=== PATIENT | male | born 1970 | race American Indian/Alaskan Native ===

== ENCOUNTER 2020-08-01 19:09 | Emergency (ER) | payer SELFPAY ==
[2020-08-01 19:38] VITALS: BP 178/106
== END 2020-08-02 06:26 | disposition left against medical advice (07) ==
LOC: ED 19:09
DX: M79.604 Pain in right leg (principal); Z53.21 Procedure and treatment not carried out due to patient leaving prior to being seen by health care provider

== ENCOUNTER 2021-03-26 08:46 | Emergency (ER) | payer BC, OTHER ==
--- NOTE | 2021-03-26 09:28 | Cat Scan Report ---
CT head/brain wo con INDICATION: Stroke symptoms. TECHNIQUE: Routine CT head. All CT scans at this location are performed using CT dose reduction for A JUN by means of automated exposure control. COMPARISON: None. FINDINGS: Intracranial: Bullock-white matter differentiation is maintained. No intracranial hemorrhage. No extra a xial collection. No hydrocephalus. No herniation. Remote right lacunar basal ganglia infarction. Smal l region of hypoattenuation in the left thalamus, also likely favored to represent remote lacunar inf arction. Mild scattered white matter hypoattenuation most consistent with sequela of chronic microvas cular disease. Sinuses: Paranasal sinuses and mastoid air cells are essentially clear. Orbits: Globes are intact. Calvarium: No acute fracture. IMPRESSION: 1. No evidence of acute territorial infarction. No hemorrhage. Signer Name: Rashid Chavez MD Signed: 03/26/2021 9:23 AM Workstation Name: [id number]
[2021-03-26 10:31] LABS: Basophils % (Auto) 0.6 % (0.0-1.8); Eosinophils # (Auto) 0.1 K/mm3 (0.0-0.4); Eosinophils % (Auto) 1.7 % (0.0-4.3); Hematocrit 42.8 % (35.5-45.6); Hemoglobin 13.3 gm/dl (11.8-15.2); Lymphocytes # (Auto) 1.6 K/mm3 (1.2-5.4); Lymphocytes % (Auto) 26.2 % (13.4-35.0); Mean Corpuscular HGB Conc 31 % (32-34); Mean Corpuscular Volume 74 fl (84-94); Monocytes # (Auto) 0.8 K/mm3 (0.0-0.8); Monocytes % (Auto) 14.2 % (0.0-7.3); Platelet Count 262 K/mm3 (140-440); Red Blood Count 5.77 M/mm3 (3.65-5.03)
[2021-03-26 10:42] LABS: INR 0.98 (0.87-1.13)
[2021-03-26 10:43] LABS: Partial Thromboplastin Time 32.8 Sec. (24.2-36.6); Thrombin Time 18.1 Sec. (15.1-19.6)
[2021-03-26 10:48] LABS: Creatine Kinase MB 1.3 ng/mL (0.0-4.0)
[2021-03-26 11:49] VITALS: BP 209/121
[2021-03-26 12:23] LABS: BUN/Creatinine Ratio 12; Blood Urea Nitrogen 11 mg/dL (9-20); Calcium 9.5 mg/dL (8.4-10.2); Hemolysis Index 4
== END 2021-03-27 01:04 | disposition left against medical advice (07) ==
LOC: ED 08:46
DX: R20.0 Anesthesia of skin (principal); Z53.21 Procedure and treatment not carried out due to patient leaving prior to being seen by health care provider
CPT/HCPCS: 36415; 70450; 80048; 82550; 82553; 82962; 84484; 85025; 85610; 85670; 85730

== ENCOUNTER 2021-03-27 08:16 | Observation (INO) | payer BC, OTHER ==
--- NOTE | 2021-03-27 09:41 | Emergency Department Report ---
ED Neuro Deficit HPI - General Chief Complaint: Neuro Symptoms/Deficit Stated Complaint: HEADACHE Time Seen by Provider: 03/27/21 09:20 Source: patient, old records reviewed Mode of arrival: Ambulatory Limitations: No Limitations - History of Present Illness Initial Comments: 50-year-old male with a past medical history of hypertension presents to the [facility] with stroke symptoms x1 week. Patient has had persistent slurred speech and numbness and tingling to the right fingers as well as right facial droop. Patient was seen here yesterday and had labs and CT head but he eloped prior to MD evaluation. Patient has a long history of untreated hypertension. He has been trying to manage his BP with "herbs" but has never been placed on medication. He smokes 2 cigars daily and does not currently take aspirin. He does not have a primary care doctor. BP yesterday was 209/121 CT head from 03/26/2021 at 9:[address] head findings: Remote right lacunar basal ganglia infarct. Small region of hypoattenuation in the left thalamus also likely favored to represent remote lacunar infarct. Mild scattered white matter hypoattenuation most consistent with sequelae of chronic vascular vascular disease. - Related Data Allergies/Adverse Reactions: Allergies Allergy/AdvReac Type Severity Reaction Status Date / Time No Known Allergies Allergy Unverified 03/26/21 08:49 ED Review of Systems ROS: Stated complaint: HEADACHE Other details as noted in HPI Comment: All other systems reviewed and negative ED Past Medical Hx - Past Medical History Previous Medical History?: Yes Hx Hypertension: Yes - Social History Smoking Status: Current Every Day Smoker Substance Use Type: Alcohol ED Neuro Physical Exam - General Limitations: No Limitations Suspected Stroke: Yes - NIHSS Assessment Interval: Baseline 1a. Level of Consciousness: alert/keenly responsive 1b. LOC Questions: answers both correctly 1c. LOC Commands: performs tasks correctly 2. Best Gaze: normal 3. Visual: no visual loss 4. Facial Palsy: minor paralysis 5b. Motor Arm Right: no drift 5a. Motor Arm Left: no drift 6a. Motor Leg Left: no drift 6b. Motor Leg Right: no drift 7. Limb Ataxia: absent 8. Sensory: normal 9. Best Language: no aphasia 10. Dysarthria: mild/moderate dysarthria 11. Extinction/Inattention: no abnormality Total Score: 2 Stroke Severity: Minor Stroke - Other Other exam information: General: No acute distress Head: Atraumatic Eyes: normal appearance ENT: Moist mucous membranes Neck: Normal appearance, no midline tenderness Chest: Clear to auscultation bilaterally CV: Regular rate and rhythm Abdomen: Soft, normal bowel sounds, nontender, nondistended, no rebound or guarding Back: Normal inspection Extremity: Normal inspection, full range of motion Neuro: Alert O x 3, see NIH stroke scale, gait steady without ataxia. No forehead weakness noted. Psych: Appropriate behavior Skin: No rash ED Course Vital Signs 03/27/21 08:53 Temperature 98.0 F Pulse Rate 89 Respiratory 18 Rate Blood Pressure 193/105 O2 Sat by Pulse 98 Oximetry - Consultations Consultation #1: 03/27/21 09:[address] Celeste Contreras neurologist who recommends admission for stroke work-up - Lab Data Result diagrams: 03/27/21 10:16 03/27/21 10:16 - Radiology Data Radiology results: report reviewed (CT head 03/26 noncontrast reviewed) - Medical Decision Making 50-year-old male smoker with history of untreated hypertension presents to the hospital with stroke symptoms x1 week. Patient did receive labs and CT head yesterday. Report reviewed. Patient currently has an NIH stroke scale of 2. Case discussed with neurologist who recommends admission for full stroke work-u p. Cardiac monitoring, repeat labs, and aspirin ordered in the ED. patient is out of the window for TPA - Thrombolytic Inclusion/Exclusion Thrombolytic Exclusion Criteria: Symptom Onset > 3 Hours Critical Care Time: No Critical care attestation.: If time is entered above; I have spent that time in minutes in the direct care of this critically ill patient, excluding procedure time. ED Disposition Clinical Impression: Stroke, Uncontrolled hypertension, Cigar smoker, Obesity Disposition: ADMITTED INPATIENT Is pt being admited?: Yes Condition: Stable Time of Disposition: 09:57 (Dr Quintero/hospitalist)
[2021-03-27] MEDS ORDERED: ASPIRIN 325 MG TAB PO ONE (09:48)
--- NOTE | 2021-03-27 09:52 | Emergency Department Report ---
Blank Doc - Documentation Documentation: [facility] Consult Note # Demographics Consult Type: General Neurology Patient Location: Emergency Room First Name: Balbir Last Name: Db Date of : 1970 Age: 50 Gender: Male Time of Initial Page (Eastern Time): 03/27/2021, 09:45 Time of Return Call (Eastern Time): 03/27/2021, 09:45 # HPI History: 50yo M with 1 week of right sided weakness, hand numbness, slurred speech. pt had CT yesterday morning in the ED, probably only chronic findings seen. # Exam SBP: 209 DBP: 121 # Plan Thrombolytic/Intervention: NOT IV Thrombolysis or IA Intervention candidate Thrombolytic Exclusion: > 4.5 hours Intraarterial Exclusion: clinically consistent with small vessel disease Blood Pressure Management: labetolol Target Blood Pressure: SBP < 220 SBP > 100 Labs: hemoglobin A1c lipid panel Imaging: (urgency: routine): CT Angiogram Head and CT Angiogram Neck MRI Brain without contrast Diagnostic Test: echo without bubble study Therapy/Evaluation: NPO until swallow evaluation PT/OT evaluation speech/swallow consultation Medication: aspirin 81 mg daily start statin with goal of LDL < 70 DVT Prophylaxis: SCD Other: LDL < 70 If patient has any neurological deterioration please call me back immediately permissive hypertension telemetry monitoring I have discussed my recommendations with the referring provider Disposition: admit # Logistics Telemedicine: phone only
[2021-03-27] MEDS ORDERED: ACETAMINOPHEN 325 MG TAB PO PRN (10:25)
[2021-03-27] MEDS ORDERED: METOCLOPRAMIDE 10 MG TAB PO PRN (10:25)
[2021-03-27] MEDS ORDERED: hydrALAZINE 20 MG/1 ML INJ IV PRN (10:25)
[2021-03-27] MEDS ORDERED: ONDANSETRON 4 MG/2 ML INJ IV PRN (10:25)
[2021-03-27] MEDS ORDERED: MORPHINE 2 MG/1 ML INJ IV PRN (10:25)
[2021-03-27] MEDS ORDERED: PROMETHAZINE 25 MG RECT SUPP PR PRN (10:25)
[2021-03-27] MEDS ORDERED: MAGNESIUM HYDROXIDE (MOM) ORAL LIQD UDC PO PRN (10:25)
--- NOTE | 2021-03-27 10:36 | History and Physical Report ---
History of Present Illness Date of examination: 03/27/21 Date of admission: 03/27/21 09:58 Chief complaint: slurred speech and numbness and tingling to the right fingers as well as right facial droop History of present illness: 50-year-old male with a past medical history of hypertension presents to the hospital with stroke symptoms x1 week. Patient has had persistent slurred speech and numbness and tingling to the right fingers as well as right facial droop. Patient was seen here yesterday and had labs and CT head but he eloped prior to MD evaluation. Patient has a long history of untreated hypertension. He has been trying to manage his BP with "herbs" but has never been placed on medication. He smokes 2 cigars daily and does not currently take aspirin. He does not have a primary care doctor. BP yesterday was 209/121 CT head from 03/26/2021 at 9:[address] head findings: Remote right lacunar basal ganglia infarct. Small region of hypoattenuation in the left thalamus also likely favored to represent remote lacunar infarct. Mild scattered white matter hypoattenuation most consistent with sequelae of chronic vascular vascular disease. Review of System: Constitutional: no fever, no chills, no weight loss Ears, eyes, nose, mouth and throat: no nasal congestion, no nasal discharge, no sinus pressure, no vision change, no red eye. Neck: No neck pain or rigidity. Cardiovascular: No chest pain, no orthopnea, no palpitations, no leg swelling Respiratory: No shortness of breath, no cough, no congestion, no wheezing Gastrointestinal: no abdominal pain, no nausea, no vomiting Genitourinary : no dysuria, no hematuria Musculoskeletal: no joint swelling or muscle ache Integumentary: no rash, no pruritis Neurological: no parathesias, no numbness, no tingling Endocrine: no cold or heat intolerance, no polyuria or polydipsia Hematologic/Lymphatic: no easy bruising, no easy bleeding, no gland swelling Allergic/Immunologic: no urticaria, no angioedema. Medications and Allergies Allergies Allergy/AdvReac Type Severity Reaction Status Date / Time No Known Allergies Allergy Unverified 03/26/21 08:49 Active Meds: Active Medications Acetaminophen (Acetaminophen 325 Mg Tab) 650 mg PO Q4H PRN PRN Reason: Pain, Mild (1-3) Aspirin (Aspirin 325 Mg Tab) 325 mg PO QDAY MARIAN Atorvastatin Calcium (Atorvastatin 40 Mg Tab) 80 mg PO QHS MARIAN Bisacodyl (Bisacodyl 10 Mg Rect Supp) 10 mg SD QDAY PRN PRN Reason: Constipation Famotidine (Famotidine 20 Mg/2 Ml Inj) 20 mg IV BID MARIAN Hydralazine HCl (Hydralazine 20 Mg/1 Ml Inj) 5 mg IV Q30MIN PRN PRN Reason: Hypertension Magnesium Hydroxide (Magnesium Hydroxide (Mom) Oral Liqd Udc) 30 ml PO Q4H PRN PRN Reason: Constipation Metoclopramide HCl (Metoclopramide 10 Mg Tab) 10 mg PO Q6H PRN PRN Reason: Nausea And Vomiting Morphine Sulfate (Morphine 2 Mg/1 Ml Inj) 2 mg IV Q4H PRN PRN Reason: Pain, Moderate (4-6) Ondansetron HCl (Ondansetron 4 Mg/2 Ml Inj) 4 mg IV Q8H PRN PRN Reason: Nausea And Vomiting Promethazine HCl (Promethazine 25 Mg Rect Supp) 25 mg SD Q6H PRN PRN Reason: Nausea And Vomiting Sodium Chloride (Sodium Chloride 0.9% 10 Ml Flush Syringe) 10 ml INJ PRN PRN PRN Reason: LINE FLUSH Exam - Constitutional Vitals: Temp Pulse Resp BP Pulse Ox 98.0 F 89 18 193/105 98 03/27/21 08:53 03/27/21 08:53 03/27/21 08:53 03/27/21 08:53 03/27/21 08:53 Results - Labs CBC & Chem 7: 03/27/21 10:16 Assessment and Plan Possible acute CVA - We will admit the patient to remote telemetry - We'll place on aspirin and statin, will consult neurology - CT scan of the head obtained in the ER and shows - We will get MRI of the head, CTA head neck, 2-D echocardiogram - We will also get hemoglobin A1c level and fasting lipid panel - Consult PTOT and speech therapist - Keep the patient nothing by mouth for now, monitor blood glucose - Further management will be based on pending lab results and imaging studies - We'll place on GI prophylaxis to avoid stress ulcer Hypertension, uncontrolled -Continue to monitor clinically, initiate BP meds and adjust accordingly - Place on DVT prophylaxis
[2021-03-27 10:37] LABS: Basophils # (Auto) 0.1 K/mm3 (0.0-0.1); Eosinophils # (Auto) 0.1 K/mm3 (0.0-0.4); Eosinophils % (Auto) 1.6 % (0.0-4.3); Hematocrit 45.3 % (35.5-45.6); Hemoglobin 14.1 gm/dl (11.8-15.2); Lymphocytes # (Auto) 1.6 K/mm3 (1.2-5.4); Lymphocytes % (Auto) 25.7 % (13.4-35.0); Mean Corpuscular HGB Conc 31 % (32-34); Mean Corpuscular Volume 74 fl (84-94); Monocytes # (Auto) 0.7 K/mm3 (0.0-0.8); Monocytes % (Auto) 10.8 % (0.0-7.3); Platelet Count 288 K/mm3 (140-440); Red Blood Count 6.13 M/mm3 (3.65-5.03); Red Cell Distribution Width 14.5 % (13.2-15.2)
[2021-03-27 10:49] LABS: BUN/Creatinine Ratio 11; Blood Urea Nitrogen 11 mg/dL (9-20); Hemolysis Index 7
[2021-03-27] MEDS ORDERED: cloNIDine TTS 0.2 MG/24 HR PATCH TD SCH (11:00)
--- NOTE | 2021-03-27 11:21 | Consultation ---
History of Present Illness Consult date: 03/27/21 Reason for Consult: slurred speech ,right side numbness History of present illness: slurred speech and numbness and tingling to the right fingers as well as right facial droop History of present illness: 50-year-old male with a past medical history of hypertension presents to the hospital with stroke symptoms x1 week. Patient has had persistent slurred speech and numbness and tingling to the right fingers as well as right facial droop. Patient was seen here yesterday and had labs and CT head but he eloped prior to MD evaluation. Patient has a long history of untreated hypertension. He has been trying to manage his BP with "herbs" but has never been placed on medication. He smokes 2 cigars daily and does not currently take aspirin. He does not have a primary care doctor. BP yesterday was 209/121 CT head from 03/26/2021 at 9:[address] head findings: Remote right lacunar basal ganglia infarct. Small region of hypoattenuation in the left thalamus also likely favored to represent remote lacunar infarct. Mild scattered white matter hypoattenuation most consistent with sequelae of chronic vascular disease. CTA brain and neck are remarkable for Occluded left PICA -P1-P2 Review of System: Constitutional: no fever, no chills, no weight loss Ears, eyes, nose, mouth and throat: no nasal congestion, no nasal discharge, no sinus pressure, no vision change, no red eye. Neck: No neck pain or rigidity. Cardiovascular: No chest pain, no orthopnea, no palpitations, no leg swelling Respiratory: No shortness of breath, no cough, no congestion, no wheezing Gastrointestinal: no abdominal pain, no nausea, no vomiting Genitourinary : no dysuria, no hematuria Musculoskeletal: no joint swelling or muscle ache Integumentary: no rash, no pruritis Neurological: no parathesias, no numbness, no tingling Endocrine: no cold or heat intolerance, no polyuria or polydipsia Hematologic/Lymphatic: no easy bruising, no easy bleeding, no gland swelling Allergic/Immunologic: no urticaria, no angioedema. Medications and Allergies Allergies Allergy/AdvReac Type Severity Reaction Status Date / Time No Known Allergies Allergy Unverified 03/26/21 08:49 Active Meds: Active Medications Acetaminophen (Acetaminophen 325 Mg Tab) 650 mg PO Q4H PRN PRN Reason: Pain, Mild (1-3) Aspirin (Aspirin 325 Mg Tab) 325 mg PO QDAY MARIAN Atorvastatin Calcium (Atorvastatin 40 Mg Tab) 80 mg PO QHS MARIAN Bisacodyl (Bisacodyl 10 Mg Rect Supp) 10 mg RI QDAY PRN PRN Reason: Constipation Famotidine (Famotidine 20 Mg/2 Ml Inj) 20 mg IV BID MARIAN Hydralazine HCl (Hydralazine 20 Mg/1 Ml Inj) 5 mg IV Q30MIN PRN PRN Reason: Hypertension Magnesium Hydroxide (Magnesium Hydroxide (Mom) Oral Liqd Udc) 30 ml PO Q4H PRN PRN Reason: Constipation Metoclopramide HCl (Metoclopramide 10 Mg Tab) 10 mg PO Q6H PRN PRN Reason: Nausea And Vomiting Morphine Sulfate (Morphine 2 Mg/1 Ml Inj) 2 mg IV Q4H PRN PRN Reason: Pain, Moderate (4-6) Ondansetron HCl (Ondansetron 4 Mg/2 Ml Inj) 4 mg IV Q8H PRN PRN Reason: Nausea And Vomiting Promethazine HCl (Promethazine 25 Mg Rect Supp) 25 mg RI Q6H PRN PRN Reason: Nausea And Vomiting Sodium Chloride (Sodium Chloride 0.9% 10 Ml Flush Syringe) 10 ml INJ PRN PRN PRN Reason: LINE FLUSH Past History Past Medical History: hypertension Medications and Allergies Allergies Allergy/AdvReac Type Severity Reaction Status Date / Time No Known Allergies Allergy Unverified 03/26/21 08:49 Active Meds: Active Medications Acetaminophen (Acetaminophen 325 Mg Tab) 650 mg PO Q4H PRN PRN Reason: Pain, Mild (1-3) Amlodipine Besylate (Amlodipine 10 Mg Tab) 10 mg PO QDAY MARIAN Aspirin (Aspirin 325 Mg Tab) 325 mg PO QDAY MARIAN Atorvastatin Calcium (Atorvastatin 40 Mg Tab) 80 mg PO QHS MARIAN Bisacodyl (Bisacodyl 10 Mg Rect Supp) 10 mg RI QDAY PRN PRN Reason: Constipation Clonidine HCl (Clonidine Tts 0.2 Mg/24 Hr Patch) 0.2 mg TD QWEEK MARIAN Famotidine (Famotidine 20 Mg/2 Ml Inj) 20 mg IV BID MARIAN Hydralazine HCl (Hydralazine 20 Mg/1 Ml Inj) 5 mg IV Q30MIN PRN PRN Reason: Hypertension Magnesium Hydroxide (Magnesium Hydroxide (Mom) Oral Liqd Udc) 30 ml PO Q4H PRN PRN Reason: Constipation Metoclopramide HCl (Metoclopramide 10 Mg Tab) 10 mg PO Q6H PRN PRN Reason: Nausea And Vomiting Morphine Sulfate (Morphine 2 Mg/1 Ml Inj) 2 mg IV Q4H PRN PRN Reason: Pain, Moderate (4-6) Ondansetron HCl (Ondansetron 4 Mg/2 Ml Inj) 4 mg IV Q8H PRN PRN Reason: Nausea And Vomiting Promethazine HCl (Promethazine 25 Mg Rect Supp) 25 mg RI Q6H PRN PRN Reason: Nausea And Vomiting Sodium Chloride (Sodium Chloride 0.9% 10 Ml Flush Syringe) 10 ml IV PRN PRN PRN Reason: LINE FLUSH Physical Examination - Vital Signs Vital Signs: Vital Signs Temp Pulse Resp BP Pulse Ox 98.0 F 89 18 193/105 98 03/27/21 08:53 03/27/21 08:53 03/27/21 08:53 03/27/21 08:53 03/27/21 08:53 - Constitutional General appearance: comfortable - EENT EENT: Present: PERRL, mucous membranes moist - Respiratory Respiratory: Present: chest non-tender, lungs clear, rhonchi - Cardiovascular Cardiovascular: Present: regular rate, normal S1, normal S2 Extremities: Present: no peripheral edema bilatateraly, no clubbing, cyanosis - Gastrointestinal Gastrointestinal: Present: normoactive bowel sounds - Integumentary Integumentary: Present: normal - Neurologic Cranial nerve examination: PERRL, EOMI, VFF, ptosis, anisocoria, other (slight right facial droop and no diplopia ,no visual deficit no sensory impairment ) Speech examination: intact Detailed motor examination: other (slight right pronator drift , able to ambulate on his own, denied snsory impairment today ,slight right finger to nose difficulty ) - Psychiatric Psychiatric: Present: other - Level of Consciousness 1a. Level of Consciousness: alert/keenly responsive - LOC Questions 1b. LOC Questions: answers both correctly - LOC Command 1c. LOC Commands: performs tasks correctly - Best Gaze 2. Best Gaze: normal - Visual 3. Visual: no visual loss - Facial Palsy 4. Facial Palsy: minor paralysis - Motor Arm 5a. Motor Arm Left: no drift 5b. Motor Arm Right: drift - Motor Leg 6a. Motor Leg Left: no drift 6b. Motor Leg Right: no drift - Limb Ataxia 7. Limb Ataxia: present 1 limb - Sensory 8. Sensory: normal - Best Language 9. Best Language: no aphasia - Dysarthria 10. Dysarthria: normal - Extinction and Inattention 11. Extinction/Inattention: no abnormality - Scoring Total Score: 3 Stroke Severity: Minor Stroke Results - Laboratory Findings CBC and BMP: 03/27/21 10:16 03/27/21 10:16 Abnormal Lab Findings: Abnormal Labs 03/27/21 03/27/21 10:16 10:16 RBC 6.13 H MCV 74 L MCH 23 L MCHC 31 L [place] % (Auto) 10.8 H Glucose 122 H Assessment and Plan Assessment and Plan #this is 50 ys old male with long standing hx of HTN poorly controlled -Initial BP>200/100 -he refuse to take BP medications but Herpes -Initial INH#2 -- Today NIH#3 due to noted dysmetria -CT brain is remarkable for multiple remote infarct in BG bilateral -MRI brain today is remarkable for left tegtum of midbrain emboli as well as scattered emboli in LPCA . distribuation -CTA brain and neck is remarkable for LPCA occlusion at P1-P2 -pt. is started on ASA 325 mg -Lipitor 40 mg -Control BP symptoms are on going for over 5 days -Echo is pending -LDL and A1C is pending -Suggest UDS -add Plavix 75 mg for 21 days -telemetry monitor -PT/ST evaluate # Hypertensive emergency -Initial BP>200/100 -Need BP <150/80 gradually # DVT prophylaxis -SQ heparine PLAN 1-Echo 2- BP<150/80 3- Lipitor 40 mg and check LDL 4- A1C 5- [id number] mg daily Plus Plavix 75 mg X21 days then ASA 325 mg daily 6- PT/ST evaluate 7- Instruct pt. to comply with medications 8- Follow up with PCP and neurology will follow
--- NOTE | 2021-03-27 11:50 | Cat Scan Report ---
CTA NECK WITH CONTRAST HISTORY: Stroke COMPARISON: None. TECHNIQUE: Routine CTA of the neck was performed. 3-D/MIP reformats were postprocessed. Percentage s tenosis is determined by direct quantitative measurements of diseased internal carotid artery diamete r compared with normal distal internal carotid artery reference segments or by criteria similar to NA SCET where applicable.All CT scans at this location are performed using CT dose reduction for ALARA b y means of automated exposure control CONTRAST: 100 ml of Omnipaque 350 FINDINGS: Aortic arch: No significant abnormality. Cervical vertebral arteries: No significant abnormality. Common carotid arteries: No significant abnormality. Carotid bifurcations: Normal Cervical internal carotid arteries: No significant abnormality. Additional findings: None. IMPRESSION: 1. No significant abnormality. Signer Name: Deena Dhaliwal MD Signed: 03/27/2021 11:46 AM Workstation Name: [id number]
--- NOTE | 2021-03-27 11:55 | Cat Scan Report ---
CTA HEAD WITH CONTRAST HISTORY: Stroke COMPARISON: None. TECHNIQUE: Routine non-contrast CT Head, CTA of the head and post-contrast CT Head are performed. 3-D /MIP reformats postprocessed. All CT scans at this location are performed using CT dose reduction for ALARA by means of automated exposure control CONTRAST: 100 ml of Omnipaque 350 FINDINGS: CTA Head: Intracranial vertebral arteries: No significant abnormality. Basilar artery: No significant abnormality. Posterior cerebral arteries: No significant abnormality. Posterior communicating artery continues as the right posterior cerebral artery; occluded left posterior cerebral artery at the P1 P2 junction Intracranial internal carotid arteries: No significant abnormality. Anterior cerebral arteries: No significant abnormality. Middle cerebral arteries: No significant abnormality. Dural venous sinuses:Not optimally opacified. No significant abnormality. Additional findings: None. IMPRESSION: 1. 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
--- NOTE | 2021-03-27 13:49 | Magnetic Resonance Report ---
NONENHANCED MR SCAN OF THE BRAIN: INDICATION / CLINICAL INFORMATION: stroke. TECHNIQUE: Multiplanar, multisequence MR images of the brain obtained. COMPARISON: None available. FINDINGS: BRAIN / INTRACRANIAL CONTENTS: Focal subacute ischemia in the left occipital lobe, posterior medial t emporal lobe and left cerebral peduncle and left thalamus. This infarction is more than 12 hours old (increased T2 signal intensities) but less than 5 days old (low ADC); no hemorrhagic changes Brainstem and cerebellar hemispheres are normal. In the cerebral hemispheres, chronic ischemic change s are seen in the right conrad radiata. Scattered white matter lesions ([place] 1) seen. CRANIOCERVICAL JUNCTION: No significant abnormality. VASCULAR FLOW-VOIDS: Basilar artery and internal carotid arteries are normal. In the CTA obtained ear lier today, left posterior cerebral artery is occluded at the junction of left P1 and P2 segments. ORBITS: No significant abnormality of visualized orbits. SINUSES / MASTOIDS: No significant abnormality of visualized sinuses and mastoid air cells. ADDITIONAL FINDINGS: None. IMPRESSION: Focal areas of subacute nonhemorrhagic ischemia in the left occipital lobe, left posteromedial tempor al lobe, left cerebral peduncle and left thalamus Signer Name: Deena Dhaliwal MD Signed: 03/27/2021 1:45 PM Workstation Name: [id number]
[2021-03-27] MEDS: CLOPIDOGREL 75 MG TAB PO SCH (15:50)
[2021-03-27] MEDS: amLODIPine 10 MG TAB PO SCH (15:51)
[2021-03-27] MEDS ORDERED: FAMOTIDINE 20 MG/2 ML INJ IV SCH (22:00)
[2021-03-28 06:25] LABS: Chol/HDL Ratio 7.5 %
[2021-03-28] MEDS: FAMOTIDINE 20 MG/2 ML INJ IV SCH ×2 (09:34→21:24)
[2021-03-28] MEDS: amLODIPine 10 MG TAB PO SCH (09:34)
[2021-03-28] MEDS: CLOPIDOGREL 75 MG TAB PO SCH (09:34)
[2021-03-28] MEDS: ASPIRIN 325 MG TAB PO SCH (09:34)
--- NOTE | 2021-03-28 10:46 | Progress Note ---
Assessment and Plan Assessment and Plan #this is 50 ys old male with long standing hx of HTN poorly controlled -Initial BP>200/100 -he refuse to take BP medications but Herpes -Initial INH#2 -- Today NIH#3 due to noted dysmetria -CT brain is remarkable for multiple remote infarct in BG bilateral -MRI brain today is remarkable for left subacute infarct in left occipital,temporal,left cerebral peduncle FINDING are consistent with Left RECORDAK OPERATOR occlusion -CTA brain and neck is remarkable for LPCA occlusion at P1-P2 -pt. 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 to comply with medications 8- Follow up with PCP and neurology will sign off Subjective Date of service: 03/28/21 Principal diagnosis: unsteady gait for few days Interval history: pt. had no complain except he is hungry ,weakness and dizziness is better Objective - Vital Sign Vital Signs - 12hr 03/27/21 03/28/21 03/28/21 23:40 00:31 04:35 Temperature 98.5 F 97.9 F Pulse Rate 82 88 Respiratory 18 18 Rate Blood Pressure 144/77 130/87 O2 Sat by Pulse 97 99 99 Oximetry 03/28/21 03/28/21 03/28/21 07:51 09:22 09:34 Temperature Pulse Rate 79 79 Respiratory 20 Rate Blood Pressure 168/94 168/94 O2 Sat by Pulse 100 99 Oximetry - General Apperance Constitutional: comfortable - EENT EENT: PERRL, mucous membranes moist, mucous membranes dry, hearing intact - Respiratory Respiratory: chest non-tender, lungs clear, rhonchi - Cardiovascular Cardiovascular: regular rate, normal S1, normal S2 Extremities: no peripheral edema bilat, no clubbing, cyanosis - Gastrointestinal Gastrointestinal: normoactive bowel sounds - Integumentary Integumentary: normal - Neurologic Cranial nerve examination: PERRL, EOMI, other (slight right facial droop ,) - Laboratory Findings CBC and BMP: 03/27/21 10:16 03/27/21 10:16 Abnormal Lab Findings: Abnormal Labs 03/27/21 03/27/21 03/28/21 10:16 10:16 05:01 RBC 6.13 H MCV 74 L MCH 23 L MCHC 31 L [place] % (Auto) 10.8 H Glucose 122 H Triglycerides 161 H LDL Cholesterol Direct 158 H HDL Cholesterol 26 L
--- NOTE | 2021-03-28 14:54 | Progress Note ---
Assessment and Plan - Patient Problems (1) Acute CVA (cerebrovascular accident) Current Visit: Yes Status: Acute Plan to address problem: Involving the left occipital lobe Has mild hemiparesis MRI report reviewed Brain MRI Focal areas of subacute nonhemorrhagic ischemia in the left occipital lobe, left posteromedial temporal lobe, left cerebral peduncle and left thalamus. Echocardiogram LV ejection fraction is 55 to 60% valvular abnormalities are not there CT of the neck No significant abnormality CT Head Occluded left posterior cerebral artery at P1 and P2 junction Patient to be discharged on statins, dual antiplatelet therapy and ant ihypertensives. (2) Hypertensive emergency Current Visit: Yes Status: Acute Plan to address problem: Blood pressure medications initiated and patient counseled about compliance (3) Nicotine dependence Current Visit: Yes Status: Chronic Qualifiers: Nicotine product type: cigarettes Plan to address problem: Smokes about half a pack a day patient Patient counseled NicoDerm patch (4) Encounter for smoking cessation counseling Current Visit: Yes Status: Acute Plan to address problem: Patient counseled about smoking cessation Transplant 11 minutes (5) DVT prophylaxis Current Visit: Yes Status: Acute Plan to address problem: Heparin and GI prophylaxis Subjective Date of service: 03/28/21 Principal diagnosis: unsteady gait for few days Interval history: 50-year-old male with a past medical history of hypertension presents to the hospital with stroke symptoms x1 week. Patient has had persistent slurred speech and numbness and tingling to the right fingers as well as right facial droop. Patient was seen here yesterday and had labs and CT head but he eloped prior to MD evaluation. Patient has a long history of untreated hypertension. He has been trying to manage his BP with "herbs" but has never been placed on medication. He smokes 2 cigars daily and does not currently take aspirin. He does not have a primary care doctor. BP yesterday was 209/121 CT head from 03/26/2021 at 9:[address] head findings: Remote right lacunar basal ganglia infarct. Small region of hypoattenuation in the left thalamus also likely favored to represent remote lacunar infarct. Mild scattered white matter hypoattenuation most consistent with sequelae of chronic vascular vascular disease. 03/27/21 Brain MRI Focal areas of subacute nonhemorrhagic ischemia in the left occipital lobe, left posteromedial temporal lobe, left cerebral peduncle and left thalamus. Echocardiogram LV ejection fraction is 55 to 60% valvular abnormalities are not there CT of the neck No significant abnormality CT Head Occluded left posterior cerebral artery at P1 and P2 junction Able to walk Objective - Constitutional Vitals: Vital Signs - 12hr 03/28/21 03/28/21 03/28/21 04:35 07:51 09:22 Temperature 97.9 F Pulse Rate 88 79 Pulse Rate [ From Monitor] Respiratory 18 20 Rate Blood Pressure 130/87 168/94 O2 Sat by Pulse 99 100 99 Oximetry 03/28/21 03/28/21 03/28/21 09:34 11:00 11:37 Temperature 98.3 F Pulse Rate 79 76 Pulse Rate [ 79 From Monitor] Respiratory 18 20 Rate Blood Pressure 168/94 165/92 O2 Sat by Pulse 98 98 Oximetry 03/28/21 11:50 Temperature Pulse Rate 80 Pulse Rate [ From Monitor] Respiratory Rate Blood Pressure O2 Sat by Pulse Oximetry General appearance: Present: no acute distress, well-nourished - EENT Eyes: PERRL, EOM intact ENT: hearing intact, clear oral mucosa Ears: bilateral: normal - Neck Neck: supple, normal ROM - Respiratory Respiratory effort: normal Respiratory: bilateral: CTA - Breasts Breasts: normal - Cardiovascular Heart rate: 78 Rhythm: regular Heart Sounds: Present: S1 & S2. Absent: gallop, rub Extremities: pulses intact, No edema, normal color, Full ROM - Gastrointestinal General gastrointestinal: Present: soft, non-tender, non-distended, normal bowel sounds - Genitourinary Male genitourinary: normal - Integumentary Integumentary: clear, warm, dry - Musculoskeletal Musculoskeletal: 1, strength equal bilaterally - Neurologic Neurologic: focal deficits (L hemiparesis but able to walk), moves all extremities - Psychiatric Psychiatric: memory intact, appropriate mood/affect, intact judgment & insight - Labs CBC & Chem 7: 03/27/21 10:16 03/27/21 10:16 Labs: Abnormal lab results 03/28/21 Range/Units 05:01 Triglycerides 161 H (2-149) mg/dL LDL Cholesterol Direct 158 H (50-130) mg/dL HDL Cholesterol 26 L (40-59) mg/dL
--- NOTE | 2021-03-28 17:27 | Electrocardiograph Report ---
[facility] Test Date: 2021-03-28 Test Time: 10:13:48 Pat Name: ISSAC TIWARI Department: Room: A464 1 Gender: M Full Time Staff Interpreter: FRANK : 1970 Requested By: NEHEMIAS LAURENT Order Number: [id number] Reading MD: Eugenia Hassan Measurements Intervals [place] Rate: 69 P: 10 MT: 190 QRS: -16 QRSD: 85 T: -14 QT: 403 QTc: 433 Interpretive Statements Sinus rhythm Left ventricle hypertrophy Possible old anterior infarct No previous ECG available for comparison Electronically Signed On 03-28-2021 17:26:58 EDT by Eugenia Hassan
[2021-03-29] MEDS: ASPIRIN 325 MG TAB PO SCH (10:36)
[2021-03-29] MEDS: amLODIPine 10 MG TAB PO SCH (10:36)
[2021-03-29] MEDS: FAMOTIDINE 20 MG/2 ML INJ IV SCH (10:36)
[2021-03-29] MEDS: CLOPIDOGREL 75 MG TAB PO SCH (10:36)
--- NOTE | 2021-03-29 11:54 | Discharge Summary ---
Providers - Providers Date of Admission: 03/27/21 09:58 Date of discharge: 03/29/21 Attending physician: KEENAN SOMMERS 03/27/21 Consult to Physician [CONS] Routine Comment: Consulting Provider: PADMINI SHIPLEY Physician Instructions: Reason For Exam: stroke 03/27/21 10:25 Consult to Case Management [CONS] Routine Services Needed at Discharge: Other Notified:: case management Additional Physician Instructions: Discharge planning Consult to Dietitian/Nutrition [CONS] Routine Physician Instructions: Reason For Exam: Reason for Consult: Nutrition Recommendations Reason for Consult: Diet education Occupational Therapy Evaluate and Treat [CONS] Routine Comment: Reason For Exam: Neuro deficits Physical Therapy Evaluation and Treat [CONS] Routine Comment: Reason For Exam: Neuro deficits 03/27/21 10:38 Speech Therapy Evaluation and Treat [CONS] Routine Reason For Exam: aspiration Primary care physician: ROUTE SALES PERSON Hospitalization Condition: Stable Hospital course: Subjective Date of service: 03/28/21 Principal diagnosis: unsteady gait for few days Interval history: 50-year-old male with a past medical history of hypertension presents to the hospital with stroke symptoms x1 week. Patient has had persistent slurred speech and numbness and tingling to the right fingers as well as right facial droop. Patient was seen here yesterday and had labs and CT head but he eloped prior to MD evaluation. Patient has a long history of untreated hypertension. He has been trying to manage his BP with "herbs" but has never been placed on medication. He smokes 2 cigars daily and does not currently take aspirin. He does not have a primary care doctor. BP yesterday was 209/121 CT head from 03/26/2021 at 9:[address] head findings: Remote right lacunar basal ganglia infarct. Small region of hypoattenuation in the left thalamus also likely favored to represent remote lacunar infarct. Mild scattered white matter hypoattenuation most consistent with sequelae of chronic vascular vascular disease. 03/27/21 Brain MRI Focal areas of subacute nonhemorrhagic ischemia in the left occipital lobe, left posteromedial temporal lobe, left cerebral peduncle and left thalamus. Echocardiogram LV ejection fraction is 55 to 60% valvular abnormalities are not there CT of the neck No significant abnormality CT Head Occluded left posterior cerebral artery at P1 and P2 junction Able to walk for okay (1) Acute CVA (cerebrovascular accident) Current Visit: Yes Status: Acute Plan to address problem: Involving the left occipital lobe Has mild hemiparesis MRI report reviewed Brain MRI Focal areas of subacute nonhemorrhagic ischemia in the left occipital lobe, left posteromedial temporal lobe, left cerebral peduncle and left thalamus. Echocardiogram LV ejection fraction is 55 to 60% valvular abnormalities are not there CT of the neck No significant abnormality CT Head Occluded left posterior cerebral artery at P1 and P2 junction Patient to be discharged on statins, dual antiplatelet therapy and antihypertensives. (2) Hypertensive emergency Current Visit: Yes Status: Acute Plan to address problem: Blood pressure medications initiated and patient counseled about compliance (3) Nicotine dependence Current Visit: Yes Status: Chronic Qualifiers: Nicotine product type: cigarettes Plan to address problem: Smokes about half a pack a day patient Patient counseled NicoDerm patch (4) Encounter for smoking cessation counseling Current Visit: Yes Status: Acute Plan to address problem: Patient counseled about smoking cessation Transplant 11 minutes (5) DVT prophylaxis Current Visit: Yes Status: Acute Plan to address problem: Heparin and GI prophylaxis Disposition: 01 HOME / SELF CARE / HOMELESS Final Discharge Diagnosis (Prints w/discharge instructions): Acute CVA. Hypertensive emergency. nicotine dependence Time spent for discharge: 35 minutes - Discharge Diagnoses (1) Acute CVA (cerebrovascular accident) Status: Acute (2) Hypertensive emergency Status: Acute (3) Nicotine dependence Status: Chronic Qualifiers: Nicotine product type: cigarettes (4) Encounter for smoking cessation counseling Status: Acute (5) DVT prophylaxis Status: Acute Core Measure Documentation - Palliative Care Palliative Care/ Comfort Measures: Not Applicable - Core Measures Any of the following diagnoses?: none Exam - Constitutional Vitals: Temp Pulse Resp BP Pulse Ox 97.6 F 89 17 152/74 97 03/29/21 10:35 03/29/21 10:35 03/29/21 10:35 03/29/21 10:35 03/29/21 10:35 General appearance: Present: no acute distress, well-nourished - EENT Eyes: Present: PERRL ENT: hearing intact, clear oral mucosa - Neck Neck: Present: supple, normal ROM - Respiratory Respiratory effort: normal Respiratory: bilateral: CTA - Cardiovascular Heart rate: 78 Rhythm: regular Heart Sounds: Present: S1 & S2. Absent: rub, click - Extremities Extremities: pulses symmetrical, No edema Peripheral Pulses: within normal limits - Abdominal General gastrointestinal: Present: soft, non-tender, non-distended, normal bowel sounds Male genitourinary: Present: normal - Integumentary Integumentary: Present: clear, warm, dry - Musculoskeletal Musculoskeletal: right sided weakness (4/5 power) - Psychiatric Psychiatric: appropriate mood/affect, intact judgment & insight - Neurologic Neurologic: CNII-XII intact, moves all extremities - Allied Health Allied health notes reviewed: nursing, case management Plan Activity: no restrictions Diet: low fat, low cholesterol, low salt Follow up with: PRIMARY CARE, [Primary Care Provider] - 3-5 Days BERNA BABCOCK MD [Staff Physician] - 7 Days Prescriptions: amLODIPine 10 mg PO QDAY 30 Days #30 tablet Aspirin 325 mg PO QDAY #100 tablet Valsartan [Diovan] 160 mg PO Q12H #60 tablet AtorvaSTATin [Lipitor] 40 mg PO QHS #30 tablet Clopidogrel [Plavix] 75 mg PO QDAY #30 tablet
[2021-03-29 12:30] VITALS: BP 164/88
[2021-04-03] MEDS ORDERED: cloNIDine TTS 0.2 MG/24 HR PATCH TD SCH (10:00)
== END 2021-03-29 15:49 | disposition home or self-care (01) ==
LOC: ED 08:16 → 4A 09:58
PROVIDERS: ADMIT Internal Medicine; ATTEND Internal Medicine
DX: I63.9 Cerebral infarction, unspecified (principal); I16.1 Hypertensive emergency; E66.9 Obesity, unspecified; F17.210 Nicotine dependence, cigarettes, uncomplicated; R29.702 NIHSS score 2; R29.818 Other symptoms and signs involving the nervous system; Z79.82 Long term (current) use of aspirin; Z79.899 Other long term (current) drug therapy; Z68.33 Body mass index [BMI] 33.0-33.9, adult
CPT/HCPCS: 36415; 70496; 70498; 70551; 80048; 80061; 83036; 85025; 92523; 92610; 93005; 93306; 96374; 96376; 97162; 99285; 99407; A9270; G0378; Q9967

== ENCOUNTER 2021-07-21 12:06 | Emergency (ER) | payer BC, OTHER ==
[2021-07-21 12:47] VITALS: BP 133/78
[2021-07-21] MEDS ORDERED: SODIUM CHLORIDE 0.9% 1000 ML 1,000 ML IV ONE (12:48)
[2021-07-21] MEDS ORDERED: ONDANSETRON 4 MG/2 ML INJ IV ONE (12:48)
[2021-07-21] MEDS ORDERED: FAMOTIDINE 20 MG/2 ML INJ IV ONE (12:52)
[2021-07-21 14:01] LABS: Basophils % (Auto) 0.7 % (0.0-1.8); Eosinophils % (Auto) 0.2 % (0.0-4.3); Lymphocytes # (Auto) 1.1 K/mm3 (1.2-5.4); Lymphocytes % (Auto) 16.1 % (13.4-35.0); Mean Corpuscular HGB Conc 30 % (32-34); Mean Corpuscular Volume 73 fl (84-94); Monocytes # (Auto) 0.8 K/mm3 (0.0-0.8); Monocytes % (Auto) 12.6 % (0.0-7.3); Platelet Count 215 K/mm3 (140-440); Red Blood Count 5.56 M/mm3 (3.65-5.03); Red Cell Distribution Width 14.3 % (13.2-15.2)
--- NOTE | 2021-07-21 14:04 | Emergency Department Report ---
ED General Adult HPI - General Chief complaint: Nausea/Vomiting/Diarrhea Stated complaint: SOME BAD FOOD Time Seen by Provider: 07/21/21 12:47 Source: patient Mode of arrival: Ambulatory Limitations: No Limitations - History of Present Illness Initial comments: 50-year-old -[place] male patient presents with complaints of nausea and vomiting x3 days. Patient states his symptoms began after eating some chili that he believed had bad meat in it. He denies any hematemesis/coffee-ground emesis, melena/hematochezia, abdominal pain, chest pain, or fever/chills/sweats. No cough or shortness of breath per patient. He states he is tolerating fluids without difficulty. Patient also denies any marijuana use - Related Data Previous Rx's Medication Instructions Recorded Last Taken Type Aspirin 325 mg PO QDAY #100 tablet 03/29/21 Unknown Rx AtorvaSTATin [Lipitor] 40 mg PO QHS #30 tablet 03/29/21 Unknown Rx Clopidogrel [Plavix] 75 mg PO QDAY #30 tablet 03/29/21 Unknown Rx Valsartan [Diovan] 160 mg PO Q12H #60 tablet 03/29/21 Unknown Rx amLODIPine 10 mg PO QDAY 30 Days #30 tablet 03/29/21 Unknown Rx Famotidine [Pepcid] 20 mg PO BID #10 tablet 07/21/21 Unknown Rx Ondansetron [Zofran Odt] 4 mg PO Q8HR PRN #15 tab.rapdis 07/21/21 Unknown Rx Allergies Allergy/AdvReac Type Severity Reaction Status Date / Time No Known Allergies Allergy Verified 07/21/21 12:10 ED Review of Systems ROS: Stated complaint: SOME BAD FOOD Other details as noted in HPI Constitutional: denies: chills, diaphoresis, fever, malaise, weakness Respiratory: denies: cough, shortness of breath Cardiovascular: denies: chest pain Gastrointestinal: nausea, vomiting. denies: abdominal pain, diarrhea, constipation, hematemesis, melena, hematochezia Musculoskeletal: denies: back pain Neurological: denies: headache ED Past Medical Hx - Past Medical History Hx Hypertension: Yes - Social History Smoking Status: Current Every Day Smoker - Medications Home Medications: Home Medications Medication Instructions Recorded Confirmed Last Taken Type Aspirin 325 mg PO QDAY #100 tablet 03/29/21 Unknown Rx AtorvaSTATin [Lipitor] 40 mg PO QHS #30 tablet 03/29/21 Unknown Rx Clopidogrel [Plavix] 75 mg PO QDAY #30 tablet 03/29/21 Unknown Rx Valsartan [Diovan] 160 mg PO Q12H #60 tablet 03/29/21 Unknown Rx amLODIPine 10 mg PO QDAY 30 Days #30 tablet 03/29/21 Unknown Rx Famotidine [Pepcid] 20 mg PO BID #10 tablet 07/21/21 Unknown Rx Ondansetron [Zofran Odt] 4 mg PO Q8HR PRN #15 tab.rapdis 07/21/21 Unknown Rx ED Physical Exam - General Limitations: No Limitations General appearance: alert, in no apparent distress, obese - Head Head exam: Present: atraumatic, normocephalic - Eye Eye exam: Present: normal appearance - Respiratory Respiratory exam: Present: normal lung sounds bilaterally. Absent: respiratory distress - Cardiovascular Cardiovascular Exam: Present: regular rate, normal rhythm. Absent: systolic murmur, diastolic murmur, rubs, gallop - GI/Abdominal GI/Abdominal exam: Present: soft, normal bowel sounds. Absent: distended, tenderness, guarding, rebound, rigid - Neurological Exam Neurological exam: Present: alert, oriented X3 - Psychiatric Psychiatric exam: Present: normal affect, normal mood - Skin Skin exam: Present: warm, dry, intact, normal color. Absent: rash ED Course Vital Signs 07/21/21 07/21/21 12:11 14:13 Temperature 98.2 F Pulse Rate 113 H 100 H Respiratory 20 Rate Blood Pressure 133/78 O2 Sat by Pulse 94 96 Oximetry ED Medical Decision Making - Lab Data Result diagrams: 07/21/21 13:29 07/21/21 13:29 - Medical Decision Making 50-year-old -[place] male patient presents with complaints of nausea and vomiting x3 days. Patient states his symptoms began after eating some chili that he believed had bad meat in it. He denies any hematemesis/coffee-ground emesis, melena/hematochezia, abdominal pain, chest pain, or fever/chills/sweats. No cough or shortness of breath per patient. He states he is tolerating fluids without difficulty. Patient also denies any marijuana use Dehydration noted on CMP along with a minimally elevated lipase of 65. Patient given fluids and Zofran. He is well-appearing on exam without abdominal tenderness. Patient refuses p.o. challenge. Supportive treatment given for home. Patient's vitals are within normal limits, he is well-appearing, and is stable for discharge home. Recommend patient follows up with his PCP in 3 to 5 days. Discussed presumptive diagnosis, care plan, signs and symptoms that should prompt immediate return to the ED with patient who verbalizes understanding Critical care attestation.: If time is entered above; I have spent that time in minutes in the direct care of this critically ill patient, excluding procedure time. ED Disposition Clinical Impression: Nausea and vomiting Disposition: HOME / SELF CARE / HOMELESS Is pt being admited?: No Condition: Stable Instructions: Nausea and Vomiting, Adult, [id number] Prescriptions: Famotidine [Pepcid] 20 mg PO BID #10 tablet Ondansetron [Zofran Odt] 4 mg PO Q8HR PRN #15 tab.rapdis PRN Reason: Nausea Referrals: [facility] [Provider Group] - 3-5 Days PRIMARY CARE, [Primary Care Provider] - 3-5 Days Forms: Work/School Release Form(ED)
[2021-07-21 14:06] LABS: Hematocrit 40.6 % (35.5-45.6); Hemoglobin 12.2 gm/dl (11.8-15.2)
[2021-07-21 14:53] LABS: Alanine Aminotransferase 25 units/L (7-56); Albumin 3.5 g/dL (3.9-5); BUN/Creatinine Ratio 16; Blood Urea Nitrogen 14 mg/dL (9-20); Calcium 8.1 mg/dL (8.4-10.2); Hemolysis Index 22
== END 2021-07-21 15:38 | disposition home or self-care (01) ==
LOC: ED 12:06
DX: R11.2 Nausea with vomiting, unspecified (principal); I10 Essential (primary) hypertension; F17.200 Nicotine dependence, unspecified, uncomplicated; Z79.899 Other long term (current) drug therapy
CPT/HCPCS: 36415; 80053; 83690; 85025; 96361; 96374; 96375; 99283; J2405; J3490; J7030; Q0162